=== PATIENT | female | born 1955 | race Caucasian/White ===

== ENCOUNTER → 2017-07-14 08:44 | Outpatient (CLI) | payer BC, SELFPAY ==
[2017-07-14 09:00] LABS: Basophils # 0.1 K/mm3 (0-0.2); Basophils % 1.1 % (0.1-2.0); Eosinophils # 0.2 K/mm3 (0.0-0.4); Eosinophils % 4.5 % (0.1-12.0); Hematocrit 45.6 % (37.0-47.0); Lymphocytes # 1.6 K/mm3 (0.7-4.5); Mean Corpuscular HGB Conc 32.9 g/dL (31.8-35.4); Mean Corpuscular Volume 94.3 fl (81-99); Mean Platelet Volume 7.1 fl (7.4-10.4); Monocytes # 0.3 K/mm3 (0.1-1.0); Monocytes % 6.5 % (1.7-9.3); Neutrophils # 2.2 K/mm3 (1.8-7.8); Neutrophils % 51.9 % (37.0-80.0); Platelet Count 322 K/mm3 (142-424); Red Blood Count 4.84 M/mm3 (4.20-5.40); Red Cell Distribution Width 12.8 % (11.5-17.5); White Blood Count 4.3 K/mm3 (4.8-10.8)
[2017-07-14 09:31] LABS: Alanine Aminotransferase 29 U/L (12-78); Albumin Level 3.8 gm/dL (3.4-5.0); Albumin/Globulin Ratio 0.9 (1.1-1.8); Alkaline Phosphatase 94 U/L (46-116); Anion Gap 12.3 mEq/L (5-15); Aspartate Amino Transferase 28 U/L (15-37); Bilirubin,Total 0.8 mg/dL (0.2-1.0); Blood Urea Nitrogen 10 mg/dL (7-18); Calcium 9.2 mg/dL (8.5-10.1); Carbon Dioxide 29 mmol/L (21.0-32.0); Chloride 106 mmol/L (98-107); Chol/HDL Ratio 3.7 (1-3.5); Cholesterol 181 mg/dL (140-200); Creatinine,Serum 0.86 mg/dL (0.55-1.02); Estimated Glomerular Filt Rate 67 ml/min (>60); GFR (African American) 81 ML/MIN (>60); Globulin 4.1 gm/dl (1.3-3.2); Glucose 102 mg/dL (74-106); HDL Cholesterol 49 mg/dL (29-89); LDL Cholesterol 118 mg/dL (0-130); Potassium 4.3 mmoL/L (3.5-5.1); Sodium 143 mmol/L (136-145); Thyroid Stimulating Hormone 0.91 uIU/ml (0.358-3.740); Total Protein,Serum 7.9 gm/dL (6.4-8.2); Triglycerides 72 mg/dL (30-200); VLDL Cholesterol 14 mg/dL (0-40)
== END ==
PROVIDERS: Visit Provider Internal Medicine Adolescent Medicine
DX: E78.5 Hyperlipidemia, unspecified (principal); E03.9 Hypothyroidism, unspecified; K74.5 Biliary cirrhosis, unspecified
CPT/HCPCS: 36415; 80053; 80061; 84443; 85025

== ENCOUNTER → 2017-07-20 15:17 | Outpatient (CLI) | payer BC, SELFPAY ==
--- NOTE | 2017-07-20 15:24 | XR_ITS ---
XR hand RT min 3V HISTORY: ITS.REASON: RT WRIST PAIN ORDERING PHYSICIAN: Mandeep Smalls MD PATIENT AGE: 61 years COMPARISON: FINDINGS: No fracture or dislocation. No lytic or blastic change. There is normal mineralization.. The joint spaces are well-preserved. No significant degenerative/arthritic changes. No erosive changes evident.. There are mild osteoarthritic changes of the second and third DIP. IMPRESSION: Mild osteoarthritis, otherwise right hand
--- NOTE | 2017-07-20 15:24 | XR_ITS ---
XR wrist RT min 3V HISTORY ITS.REASON: RT WRIST PAIN ORDERING PHYSICIAN: Mandeep Smalls MD PATIENT AGE: 61 years COMPARISON: None FINDINGS: No fracture or dislocation. No lytic or blastic change. There is normal mineralization.. The joint spaces are well-preserved. No significant degenerative/arthritic changes. No erosive changes evident.. There are some small cystic changes involving the ulnar aspect of the lunate proximally IMPRESSION: Subarticular cystic changes of the lunate otherwise negative right wrist
== END ==
PROVIDERS: PCP Internal Medicine Adolescent Medicine; Visit Provider Internal Medicine Adolescent Medicine
DX: M25.531 Pain in right wrist (principal); M79.641 Pain in right hand
CPT/HCPCS: 73110; 73130

== ENCOUNTER → 2018-01-19 10:26 | Outpatient (CLI) | payer BC, SELFPAY ==
[2018-01-19 11:24] LABS: Basophils # 0.1 K/mm3 (0-0.2); Basophils % 1.5 % (0.1-2.0); Eosinophils # 0.2 K/mm3 (0.0-0.4); Eosinophils % 4.2 % (0.1-12.0); Hemoglobin 15.9 g/dL (12.2-16.2); Lymphocytes # 1.8 K/mm3 (0.7-4.5); Lymphocytes % 40.8 K/mm3 (10-50); Mean Corpuscular HGB Conc 32.5 g/dL (31.8-35.4); Mean Corpuscular Hemoglobin 30.8 pg (27.0-31.2); Mean Corpuscular Volume 94.8 fl (81-99); Monocytes # 0.2 K/mm3 (0.1-1.0); Monocytes % 4.9 % (1.7-9.3); Neutrophils # 2.1 K/mm3 (1.8-7.8); Neutrophils % 48.6 % (37.0-80.0); Platelet Count 265 K/mm3 (142-424); Red Blood Count 5.16 M/mm3 (4.20-5.40); Red Cell Distribution Width 12.7 % (11.5-17.5); White Blood Count 4.4 K/mm3 (4.8-10.8)
[2018-01-19 13:04] LABS: Alanine Aminotransferase 26 U/L (12-78); Albumin Level 3.9 gm/dL (3.4-5.0); Albumin/Globulin Ratio 0.9 (1.1-1.8); Alkaline Phosphatase 104 U/L (46-116); Anion Gap 14.2 mEq/L (5-15); Aspartate Amino Transferase 27 U/L (15-37); Bilirubin,Total 0.7 mg/dL (0.2-1.0); Blood Urea Nitrogen 11 mg/dL (7-18); Calcium 9.2 mg/dL (8.5-10.1); Carbon Dioxide 27 mmol/L (21.0-32.0); Chloride 101 mmol/L (98-107); Chol/HDL Ratio 4.2 (1-3.5); Cholesterol 194 mg/dL (140-200); Creatinine,Serum 0.82 mg/dL (0.55-1.02); Estimated Glomerular Filt Rate 70 ml/min (>60); Free Thyroxine Index 5.6 ug/dL (5.93-13.13); GFR (African American) 85 ML/MIN (>60); Globulin 4.5 gm/dl (1.3-3.2); Glucose 81 mg/dL (74-106); HDL Cholesterol 46 mg/dL (29-89); LDL Cholesterol 126 mg/dL (0-130); Potassium 4.2 mmoL/L (3.5-5.1); Sodium 138 mmol/L (136-145); T4 (Thyroxine) 15.2 ug/dl (4.7-13.3); Thyroid Stimulating Hormone 0.08 uIU/ml (0.358-3.740); Total Protein,Serum 8.4 gm/dL (6.4-8.2); Triglycerides 109 mg/dL (30-200); Triiodothryronine (T3) Uptake 37 % (31-39); VLDL Cholesterol 22 mg/dL (0-40)
== END ==
PROVIDERS: Visit Provider Internal Medicine Adolescent Medicine
DX: E03.9 Hypothyroidism, unspecified (principal); E78.5 Hyperlipidemia, unspecified; K74.5 Biliary cirrhosis, unspecified
CPT/HCPCS: 36415; 80053; 80061; 84436; 84443; 84479; 85025

== ENCOUNTER → 2018-01-25 16:03 | Outpatient (CLI) | payer BC, SELFPAY ==
[2018-01-28 14:17] LABS: Albumin 3.8 g/dL (2.9-4.4); Alpha-1-Globulin 0.3 g/dL (0.0-0.4); Alpha-2-Globulin 0.8 g/dL (0.4-1.0); Gamma Globulin 1.8 g/dL (0.4-1.8)
[2018-01-29 16:20] LABS: Alpha-2-Globulin, U 12.3 % (.); Beta Globulin, U 23.8 % (.); M-Spike, % Not Observed % (Not Observed); Protein,Total,Urine 4.5 mg/dL (Not Estab.)
[2018-01-31 14:54] LABS: Free Lambda Lt Chains 26.3
[2018-01-31 15:01] LABS: Free Kappa Lt Chains 27.4
== END ==
PROVIDERS: Visit Provider Internal Medicine Adolescent Medicine
DX: R77.1 Abnormality of globulin (principal)
CPT/HCPCS: 36415; 83883; 84155; 84156; 84165; 84166

== ENCOUNTER → 2018-02-28 11:28 | Outpatient (CLI) | payer BC, SELFPAY ==
--- NOTE | 2018-02-28 11:41 | XR_ITS ---
XR bone survey CLINICAL INDICATION: High protein levels, bilateral multiple ITS.REASON: ABNORMAL LABS ORDERING PHYSICIAN: Jenniffer Velasquez MD PATIENT AGE: 62 years Comparison: None TECHNIQUE: AP and lateral skull, PA and lateral chest, AP and lateral cervical thoracic and lumbar spine, AP pelvis, AP view of upper and lower extremities bilateral feet and bilateral hands FINDINGS: PA and lateral views of the chest: Unremarkable cardiovascular structures with clear lungs. No bony destructive process evident. Calcified node in the right hilum. AP and lateral skull: Unremarkable. AP and lateral cervical spine: Degenerative disc disease C4-5-5 6 and 67. Carotid artery calcifications. No bony destructive process. AP and lateral thoracic and lumbar spine: Mild upper thoracic scoliosis convex left. Mild degenerative changes. No bony destructive process. 5 mm anterolisthesis of L4 on L5 AP pelvis: Mild osteoarthritis of the hips otherwise Unremarkable. AP extremities including hands and feet: no lytic or blastic changes. Mild osteoarthritic changes are present first metacarpal carpal joint on both sides IMPRESSION: Overall negative bone survey with no acute finding. No lytic or destructive process apparent Other nonacute findings as described above
== END ==
PROVIDERS: PCP Internal Medicine Adolescent Medicine; Visit Provider Internal Medicine Medical Oncology
DX: R79.9 Abnormal finding of blood chemistry, unspecified (principal)
CPT/HCPCS: 77075

== ENCOUNTER → 2018-05-21 09:38 | Outpatient (POV) | payer BC, SELFPAY | PROVIDERS: Visit Provider Dermatology | DX: Z00.00 Encounter for general adult medical examination without abnormal findings (principal) ==

== ENCOUNTER → 2018-07-17 11:16 | Outpatient (CLI) | payer BC, SELFPAY ==
[2018-07-17 11:40] LABS: Basophils # 0.1 K/mm3 (0-0.2); Basophils % 0.7 % (0.1-2.0); Eosinophils # 0.2 K/mm3 (0.0-0.4); Eosinophils % 2.3 % (0.1-12.0); Hematocrit 45.9 % (37.0-47.0); Hemoglobin 15.6 g/dL (12.2-16.2); Lymphocytes # 2.2 K/mm3 (0.7-4.5); Lymphocytes % 25.7 % (10-50); Mean Corpuscular Hemoglobin 30.9 pg (27.0-31.2); Mean Corpuscular Volume 90.9 fl (81-99); Mean Platelet Volume 6.8 fl (7.4-10.4); Monocytes # 0.4 K/mm3 (0.1-1.0); Monocytes % 4.3 % (1.7-9.3); Neutrophils # 5.8 K/mm3 (1.8-7.8); Neutrophils % 66.9 % (37.0-80.0); Platelet Count 419 K/mm3 (142-424); Red Blood Count 5.05 M/mm3 (4.20-5.40); Red Cell Distribution Width 12.6 % (11.5-17.5); White Blood Count 8.6 K/mm3 (4.8-10.8)
[2018-07-17 12:33] LABS: Alanine Aminotransferase 25 U/L (12-78); Albumin/Globulin Ratio 0.9 (1.1-1.8); Alkaline Phosphatase 90 U/L (46-116); Anion Gap 14.3 mEq/L (5-15); Aspartate Amino Transferase 20 U/L (15-37); Bilirubin,Total 0.6 mg/dL (0.2-1.0); Blood Urea Nitrogen 11 mg/dL (7-18); Calcium 9.1 mg/dL (8.5-10.1); Carbon Dioxide 29 mmol/L (21.0-32.0); Chloride 99 mmol/L (98-107); Chol/HDL Ratio 4.4 (1-3.5); Cholesterol 182 mg/dL (140-200); Creatinine,Serum 0.87 mg/dL (0.55-1.02); Estimated Glomerular Filt Rate 66 ml/min (>60); GFR (African American) 79 ML/MIN (>60); Globulin 4.5 gm/dl (1.3-3.2); Glucose 88 mg/dL (74-106); HDL Cholesterol 41 mg/dL (29-89); LDL Cholesterol 128 mg/dL (0-130); Potassium 4.3 mmoL/L (3.5-5.1); Sodium 138 mmol/L (136-145); Thyroid Stimulating Hormone 3.89 uIU/ml (0.358-3.740); Total Protein,Serum 8.5 gm/dL (6.4-8.2); Triglycerides 65 mg/dL (30-200); VLDL Cholesterol 13 mg/dL (0-40)
== END ==
PROVIDERS: Visit Provider Internal Medicine Adolescent Medicine
DX: K74.5 Biliary cirrhosis, unspecified (principal); E78.5 Hyperlipidemia, unspecified
CPT/HCPCS: 36415; 80053; 80061; 84443; 85025

== ENCOUNTER → 2018-08-23 14:36 | Outpatient (CLI) | payer BC, SELFPAY ==
[2018-08-23 15:18] LABS: Basophils # 0.1 K/mm3 (0-0.2); Basophils % 1.2 % (0.1-2.0); Eosinophils # 0.2 K/mm3 (0.0-0.4); Eosinophils % 2.9 % (0.1-12.0); Hematocrit 43.8 % (37.0-47.0); Hemoglobin 14.4 g/dL (12.2-16.2); Lymphocytes # 2.3 K/mm3 (0.7-4.5); Lymphocytes % 40.1 % (10-50); Mean Corpuscular HGB Conc 32.9 g/dL (31.8-35.4); Mean Corpuscular Hemoglobin 29.8 pg (27.0-31.2); Mean Corpuscular Volume 90.6 fl (81-99); Mean Platelet Volume 6.9 fl (7.4-10.4); Monocytes # 0.3 K/mm3 (0.1-1.0); Monocytes % 5.8 % (1.7-9.3); Neutrophils # 2.8 K/mm3 (1.8-7.8); Neutrophils % 50.1 % (37.0-80.0); Platelet Count 337 K/mm3 (142-424); Red Blood Count 4.83 M/mm3 (4.20-5.40); Red Cell Distribution Width 12.7 % (11.5-17.5); White Blood Count 5.6 K/mm3 (4.8-10.8)
[2018-08-23 17:39] LABS: Alanine Aminotransferase 30 U/L (12-78); Albumin Level 3.9 gm/dL (3.4-5.0); Alkaline Phosphatase 90 U/L (46-116); Anion Gap 13.2 mEq/L (5-15); Aspartate Amino Transferase 30 U/L (15-37); Bilirubin,Total 0.6 mg/dL (0.2-1.0); Blood Urea Nitrogen 8 mg/dL (7-18); Calcium 8.7 mg/dL (8.5-10.1); Carbon Dioxide 29 mmol/L (21.0-32.0); Chloride 102 mmol/L (98-107); Creatinine,Serum 0.87 mg/dL (0.55-1.02); Estimated Glomerular Filt Rate 65 ml/min (>60); GFR (African American) 79 ML/MIN (>60); Globulin 3.9 gm/dl (1.3-3.2); Glucose 80 mg/dL (74-106); Potassium 4.2 mmoL/L (3.5-5.1); Sodium 140 mmol/L (136-145); Total Protein,Serum 7.8 gm/dL (6.4-8.2)
[2018-08-26 11:14] LABS: Immunoglobulin A, Qn 328 mg/dL (87-352); Immunoglobulin G, Qn 1418 mg/dL (700-1600)
[2018-08-26 13:22] LABS: Albumin 3.8 g/dL (2.9-4.4); Alpha-1-Globulin 0.3 g/dL (0.0-0.4); Alpha-2-Globulin 0.7 g/dL (0.4-1.0); Gamma Globulin 1.8 g/dL (0.4-1.8); Protein, Total 7.7 g/dL (6.0-8.5)
[2018-08-26 14:12] LABS: Free Kappa Lt Chains 30.1 mg/L (3.3-19.4); Free Lambda Lt Chains 22.9 mg/L (5.7-26.3)
[2018-08-27 19:54] LABS: Immunoglobulin M, Qn 321 mg/dL (26-217)
== END ==
PROVIDERS: Visit Provider Internal Medicine Medical Oncology
DX: R79.9 Abnormal finding of blood chemistry, unspecified (principal)
CPT/HCPCS: 36415; 80053; 82784; 83883; 84155; 84165; 85025; 86334

== ENCOUNTER → 2019-02-11 09:49 | Outpatient (CLI) | payer BC, SELFPAY ==
[2019-02-11 10:14] LABS: Basophils # 0.1 K/mm3 (0-0.2); Basophils % 1.5 % (0.1-2.0); Eosinophils # 0.2 K/mm3 (0.0-0.4); Eosinophils % 3.4 % (0.1-12.0); Hematocrit 45.8 % (37.0-47.0); Hemoglobin 14.9 g/dL (12.2-16.2); Lymphocytes # 1.6 K/mm3 (0.7-4.5); Lymphocytes % 36.9 % (10-50); Mean Corpuscular HGB Conc 32.6 g/dL (31.8-35.4); Mean Corpuscular Hemoglobin 32.4 pg (27.0-31.2); Mean Corpuscular Volume 99.4 fl (81-99); Mean Platelet Volume 7.6 fl (7.4-10.4); Monocytes # 0.3 K/mm3 (0.1-1.0); Monocytes % 6.4 % (1.7-9.3); Neutrophils # 2.3 K/mm3 (1.8-7.8); Neutrophils % 51.7 % (37.0-80.0); Platelet Count 331 K/mm3 (142-424); Red Blood Count 4.61 M/mm3 (4.20-5.40); Red Cell Distribution Width 12.7 % (11.5-17.5); White Blood Count 4.4 K/mm3 (4.8-10.8)
[2019-02-11 11:58] LABS: Alanine Aminotransferase 23 U/L (12-78); Albumin Level 3.7 gm/dL (3.4-5.0); Albumin/Globulin Ratio 0.9 (1.1-1.8); Alkaline Phosphatase 81 U/L (46-116); Anion Gap 12.1 mEq/L (5-15); Aspartate Amino Transferase 28 U/L (15-37); Bilirubin,Total 0.8 mg/dL (0.2-1.0); Blood Urea Nitrogen 10 mg/dL (7-18); Calcium 8.7 mg/dL (8.5-10.1); Carbon Dioxide 26 mmol/L (21.0-32.0); Chloride 103 mmol/L (98-107); Chol/HDL Ratio 4.2 (1-3.5); Cholesterol 186 mg/dL (140-200); Creatinine,Serum 0.83 mg/dL (0.55-1.02); Estimated Glomerular Filt Rate 69 ml/min (>60); GFR (African American) 83 ML/MIN (>60); Glucose 91 mg/dL (74-106); HDL Cholesterol 44 mg/dL (29-89); LDL Cholesterol 124 mg/dL (0-130); Potassium 4.1 mmoL/L (3.5-5.1); Sodium 137 mmol/L (136-145); Thyroid Stimulating Hormone 1.88 uIU/ml (0.358-3.740); Total Protein,Serum 7.7 gm/dL (6.4-8.2); Triglycerides 88 mg/dL (30-200); VLDL Cholesterol 18 mg/dL (0-40)
== END ==
PROVIDERS: Visit Provider Internal Medicine Adolescent Medicine
DX: K74.5 Biliary cirrhosis, unspecified (principal); E78.5 Hyperlipidemia, unspecified; E03.9 Hypothyroidism, unspecified
CPT/HCPCS: 36415; 80053; 80061; 84443; 85025

== ENCOUNTER → 2019-05-23 12:18 | Outpatient (CLI) | payer BC, SELFPAY ==
[2019-05-23 13:01] LABS: Basophils # 0.1 K/mm3 (0-0.2); Basophils % 1.4 % (0.1-2.0); Eosinophils # 0.2 K/mm3 (0.0-0.4); Eosinophils % 3.1 % (0.1-12.0); Hematocrit 45.7 % (37.0-47.0); Hemoglobin 15.4 g/dL (12.2-16.2); Lymphocytes # 2.1 K/mm3 (0.7-4.5); Lymphocytes % 41.4 % (10-50); Mean Corpuscular HGB Conc 33.8 g/dL (31.8-35.4); Mean Corpuscular Hemoglobin 31.6 pg (27.0-31.2); Mean Corpuscular Volume 93.6 fl (81-99); Mean Platelet Volume 7.3 fl (7.4-10.4); Monocytes # 0.3 K/mm3 (0.1-1.0); Monocytes % 5.3 % (1.7-9.3); Neutrophils # 2.5 K/mm3 (1.8-7.8); Neutrophils % 48.8 % (37.0-80.0); Platelet Count 314 K/mm3 (142-424); Red Blood Count 4.88 M/mm3 (4.20-5.40); Red Cell Distribution Width 12.6 % (11.5-17.5); White Blood Count 5.1 K/mm3 (4.8-10.8)
[2019-05-23 15:12] LABS: Alanine Aminotransferase 22 U/L (12-78); Albumin Level 4.4 g/dl (3.5-5.0); Albumin/Globulin Ratio 1.2 (1.1-1.8); Alkaline Phosphatase 85 U/L (38-126); Anion Gap 10.9 mEq/L (5-15); Aspartate Amino Transferase 36 U/L (14-36); Bilirubin,Total 0.6 mg/dl (0.2-1.3); Blood Urea Nitrogen 10 mg/dl (7-17); Calcium 9.7 mg/dl (8.4-10.2); Carbon Dioxide 29 mmol/L (22.0-30.0); Chloride 101 mmol/L (98-107); Estimated Glomerular Filt Rate 84 ml/min (>60); GFR (African American) 102 ML/MIN (>60); Globulin 3.6 g/dL (1.3-3.2); Glucose 82 mg/dl (74-100); Potassium 4.9 mmoL/L (3.5-5.1); Sodium 136 mmol/L (136-145)
[2019-05-24 22:50] LABS: Free Kappa Lt Chains 27.8 mg/L (3.3-19.4); Free Lambda Lt Chains 24.5 mg/L (5.7-26.3)
[2019-05-26 14:50] LABS: Immunoglobulin A, Qn 351 mg/dL (87-352)
[2019-05-26 16:33] LABS: Albumin 3.8 g/dL (2.9-4.4); Alpha-1-Globulin 0.3 g/dL (0.0-0.4); Alpha-2-Globulin 0.7 g/dL (0.4-1.0); Gamma Globulin 1.8 g/dL (0.4-1.8); Protein, Total 7.8 g/dL (6.0-8.5)
[2019-05-27 14:58] LABS: Immunoglobulin G, Qn 1599 mg/dL (700-1600); Immunoglobulin M, Qn 350 mg/dL (26-217)
== END ==
PROVIDERS: Visit Provider Internal Medicine Medical Oncology
DX: D64.9 Anemia, unspecified (principal)
CPT/HCPCS: 36415; 80053; 82784; 83883; 84155; 84165; 85025; 86334

== ENCOUNTER → 2019-08-01 09:44 | Outpatient (CLI) | payer BC, SELFPAY ==
[2019-08-01 10:06] LABS: Basophils % 0.8 % (0.1-2.0); Eosinophils # 0.2 K/mm3 (0.0-0.4); Eosinophils % 3.7 % (0.1-12.0); Hematocrit 44.8 % (37.0-47.0); Hemoglobin 14.2 g/dL (12.2-16.2); Lymphocytes # 1.8 K/mm3 (0.7-4.5); Lymphocytes % 39.9 % (10-50); Mean Corpuscular HGB Conc 31.7 g/dL (31.8-35.4); Mean Corpuscular Volume 94.5 fl (81-99); Mean Platelet Volume 7.4 fl (7.4-10.4); Monocytes # 0.3 K/mm3 (0.1-1.0); Monocytes % 7.7 % (1.7-9.3); Neutrophils # 2.1 K/mm3 (1.8-7.8); Neutrophils % 47.9 % (37.0-80.0); Platelet Count 328 K/mm3 (142-424); Red Blood Count 4.74 M/mm3 (4.20-5.40); White Blood Count 4.4 K/mm3 (4.8-10.8)
[2019-08-01 10:14] LABS: INR 1.02 (0.9-1.1); Prothrombin Time 10.6 seconds (9.4-11.8)
[2019-08-01 11:11] LABS: Chloride 100 mmol/L (98-107); Potassium 4.7 mmoL/L (3.5-5.1); Sodium 136 mmol/L (136-145)
[2019-08-01 11:13] LABS: Alanine Aminotransferase 18 U/L (12-78); Alkaline Phosphatase 86 U/L (38-126); Aspartate Amino Transferase 33 U/L (14-36); Bilirubin,Total 0.7 mg/dl (0.2-1.3); Blood Urea Nitrogen 13 mg/dl (7-17); Estimated Glomerular Filt Rate 72 ml/min (>60); GFR (African American) 87 ML/MIN (>60)
[2019-08-01 11:14] LABS: Albumin/Globulin Ratio 1.1 (1.1-1.8); Anion Gap 10.7 mEq/L (5-15); Calcium 9.4 mg/dl (8.4-10.2); Carbon Dioxide 30 mmol/L (22.0-30.0); Chol/HDL Ratio 3.5 (1-3.5); Cholesterol 170 mg/dl (140-200); Globulin 3.6 g/dL (1.3-3.2); Glucose 96 mg/dl (74-100); HDL Cholesterol 48 mg/dl (40-60); Total Protein,Serum 7.6 g/dl (6.3-8.2); Triglycerides 94 mg/dl (30-150); VLDL Cholesterol 19 mg/dL (0-40)
[2019-08-01 11:25] LABS: Direct LDL Cholesterol 125.59 mg/dL (100-129)
[2019-08-01 11:31] LABS: Free Thyroxine Index 3.4 ug/dL (5.93-13.13); T4 (Thyroxine) 11.3 ug/dl (5.53-11.0); Triiodothryronine (T3) Uptake 30 % (23.5-40.5)
[2019-08-01 11:45] LABS: Thyroid Stimulating Hormone 5.54 uIU/mL (0.465-4.68)
== END ==
PROVIDERS: Visit Provider Internal Medicine Adolescent Medicine
DX: E03.9 Hypothyroidism, unspecified (principal); E78.5 Hyperlipidemia, unspecified; K74.5 Biliary cirrhosis, unspecified
CPT/HCPCS: 36415; 80053; 80061; 84436; 84443; 84479; 85025; 85610

== ENCOUNTER → 2020-07-16 09:36 | Outpatient (CLI) | payer MEDICARE, BC, SELFPAY ==
[2020-07-16 10:42] LABS: Chloride 103 mmol/L (98-107); Potassium 4.5 mmoL/L (3.5-5.1); Sodium 138 mmol/L (136-145)
[2020-07-16 10:44] LABS: Blood Urea Nitrogen 11 mg/dl (7-17); Estimated Glomerular Filt Rate 72 ml/min (>60); GFR (African American) 87 ML/MIN (>60)
[2020-07-16 10:45] LABS: Alanine Aminotransferase 19 U/L (12-78); Albumin Level 4.5 g/dl (3.5-5.0); Albumin/Globulin Ratio 1.3 (1.1-1.8); Alkaline Phosphatase 95 U/L (38-126); Anion Gap 13.5 mEq/L (5-15); Aspartate Amino Transferase 36 U/L (14-36); Bilirubin,Total 0.9 mg/dl (0.2-1.3); Calcium 9.6 mg/dl (8.4-10.2); Carbon Dioxide 26 mmol/L (22.0-30.0); Cholesterol 210 mg/dl (140-200); Globulin 3.5 g/dL (1.3-3.2); Glucose 102 mg/dl (74-100); Triglycerides 146 mg/dl (30-150); VLDL Cholesterol 29 mg/dL (0-40)
[2020-07-16 10:46] LABS: Chol/HDL Ratio 4.5 (1-3.5); HDL Cholesterol 47 mg/dl (40-60)
[2020-07-16 10:56] LABS: Direct LDL Cholesterol 125.26 mg/dL (100-129)
[2020-07-16 12:35] LABS: Basophils # 0.1 K/mm3 (0-0.2); Basophils % 1.6 % (0.1-2.0); Eosinophils # 0.2 K/mm3 (0.0-0.4); Eosinophils % 3.2 % (0.1-12.0); Hematocrit 47.5 % (37.0-47.0); Lymphocytes # 1.7 K/mm3 (0.7-4.5); Lymphocytes % 34.7 % (10-50); Mean Corpuscular HGB Conc 33.6 g/dL (31.8-35.4); Mean Corpuscular Hemoglobin 31.5 pg (27.0-31.2); Mean Corpuscular Volume 93.7 fl (81-99); Mean Platelet Volume 8.1 fl (7.4-10.4); Monocytes # 0.3 K/mm3 (0.1-1.0); Monocytes % 6.4 % (1.7-9.3); Neutrophils # 2.7 K/mm3 (1.8-7.8); Platelet Count 300 K/mm3 (142-424); Red Blood Count 5.07 M/mm3 (4.20-5.40); Red Cell Distribution Width 12.9 % (11.5-17.5)
[2020-07-22 12:43] LABS: Thyroid Stimulating Immunoglob <0.10 IU/L (0.00-0.55)
== END ==
PROVIDERS: Visit Provider Internal Medicine Adolescent Medicine
DX: E03.9 Hypothyroidism, unspecified (principal); E78.5 Hyperlipidemia, unspecified; K74.5 Biliary cirrhosis, unspecified
CPT/HCPCS: 36415; 80053; 80061; 84445; 85025

== ENCOUNTER → 2020-07-22 09:58 | Outpatient (CLI) | payer MEDICARE, BC, SELFPAY ==
[2020-07-22 11:21] LABS: Free T4 (Free Thyroxine) 1.85 ng/dl (0.78-2.19)
[2020-07-22 11:35] LABS: Thyroid Stimulating Hormone 2.69 uIU/mL (0.465-4.68)
== END ==
PROVIDERS: Visit Provider Nurse Practitioner Family
DX: E03.9 Hypothyroidism, unspecified (principal)
CPT/HCPCS: 36415; 84439; 84443

== ENCOUNTER → 2021-01-14 17:14 | Outpatient (CLI) | payer MEDICARE, BC, SELFPAY ==
[2021-01-14 18:51] LABS: Alanine Aminotransferase 18 U/L (12-78); Albumin/Globulin Ratio 1.1 (1.1-1.8); Alkaline Phosphatase 95 U/L (38-126); Anion Gap 15.4 mEq/L (5-15); Aspartate Amino Transferase 41 U/L (14-36); Bilirubin,Total 0.9 mg/dl (0.2-1.3); Blood Urea Nitrogen 11 mg/dl (7-17); Calcium 9.4 mg/dl (8.4-10.2); Carbon Dioxide 28 mmol/L (22.0-30.0); Chloride 100 mmol/L (98-107); Cholesterol 198 mg/dl (140-200); Estimated Glomerular Filt Rate 83 ml/min (>60); GFR (African American) 101 ML/MIN (>60); Globulin 3.5 g/dL (1.3-3.2); Glucose 84 mg/dl (74-100); HDL Cholesterol 49 mg/dl (40-60); Potassium 4.4 mmoL/L (3.5-5.1); Sodium 139 mmol/L (136-145); Total Protein,Serum 7.5 g/dl (6.3-8.2); Triglycerides 72 mg/dl (30-150); VLDL Cholesterol 14 mg/dL (0-40)
[2021-01-14 19:02] LABS: Direct LDL Cholesterol 123.48 mg/dL (100-129)
[2021-01-14 19:21] LABS: Thyroid Stimulating Hormone 1.46 uIU/mL (0.465-4.68)
== END ==
PROVIDERS: Visit Provider Internal Medicine Adolescent Medicine
DX: E03.9 Hypothyroidism, unspecified (principal); E78.5 Hyperlipidemia, unspecified
CPT/HCPCS: 36415; 80053; 80061; 84443

== ENCOUNTER → 2021-07-09 09:47 | Outpatient (CLI) | payer MEDICARE, BC, SELFPAY ==
[2021-07-09 10:26] LABS: Basophils # 0.2 K/mm3 (0-0.2); Basophils % 3.8 % (0.1-2.0); Eosinophils # 0.1 K/mm3 (0.0-0.4); Eosinophils % 3.6 % (0.1-12.0); Hemoglobin 14.7 g/dL (12.2-16.2); Lymphocytes # 1.5 K/mm3 (0.7-4.5); Mean Corpuscular HGB Conc 33.3 g/dL (31.8-35.4); Mean Corpuscular Hemoglobin 31.7 pg (27.0-31.2); Mean Corpuscular Volume 95.2 fl (81-99); Mean Platelet Volume 7.8 fl (7.4-10.4); Monocytes # 0.3 K/mm3 (0.1-1.0); Monocytes % 6.4 % (1.7-9.3); Neutrophils % 49.2 % (37.0-80.0); Platelet Count 314 K/mm3 (142-424); Red Blood Count 4.63 M/mm3 (4.20-5.40); Red Cell Distribution Width 13.1 % (11.5-17.5)
[2021-07-09 10:50] LABS: Chloride 104 mmol/L (98-107); Potassium 4.5 mmoL/L (3.5-5.1); Sodium 138 mmol/L (136-145)
[2021-07-09 10:53] LABS: Alanine Aminotransferase 19 U/L (12-78); Albumin Level 3.9 g/dl (3.5-5.0); Albumin/Globulin Ratio 1.2 (1.1-1.8); Alkaline Phosphatase 86 U/L (38-126); Anion Gap 9.5 mEq/L (5-15); Aspartate Amino Transferase 36 U/L (14-36); Bilirubin,Total 0.7 mg/dl (0.2-1.3); Blood Urea Nitrogen 12 mg/dl (7-17); Carbon Dioxide 29 mmol/L (22.0-30.0); Cholesterol 196 mg/dl (140-200); Estimated Glomerular Filt Rate 62 ml/min (>60); GFR (African American) 76 ML/MIN (>60); Globulin 3.3 g/dL (1.3-3.2); Total Protein,Serum 7.2 g/dl (6.3-8.2); Triglycerides 95 mg/dl (30-150); VLDL Cholesterol 19 mg/dL (0-40)
[2021-07-09 10:54] LABS: Calcium 8.6 mg/dl (8.4-10.2); Glucose 91 mg/dl (74-100)
[2021-07-09 11:05] LABS: Direct LDL Cholesterol 114.39 mg/dL (100-129)
[2021-07-09 11:11] LABS: Triiodothryronine (T3) Uptake 29 % (23.5-40.5)
[2021-07-09 11:12] LABS: Free Thyroxine Index 3.9 ug/dL (5.93-13.13); T4 (Thyroxine) 13.3 ug/dl (5.53-11.0)
[2021-07-09 11:25] LABS: Thyroid Stimulating Hormone 1.45 uIU/mL (0.465-4.68)
[2021-07-09 16:17] LABS: Chol/HDL Ratio 3.8 (1-3.5); HDL Cholesterol 51 mg/dl (40-60)
== END ==
PROVIDERS: PCP Internal Medicine Adolescent Medicine; Visit Provider Internal Medicine Adolescent Medicine
DX: E03.9 Hypothyroidism, unspecified (principal); K74.5 Biliary cirrhosis, unspecified; E78.5 Hyperlipidemia, unspecified
CPT/HCPCS: 36415; 80053; 80061; 84436; 84443; 84479; 85025

== ENCOUNTER → 2021-07-18 16:29 | Outpatient (CLI) | payer MEDICARE, BC, SELFPAY ==
--- NOTE | 2021-07-18 17:03 | XR_ITS ---
PROCEDURE INFORMATION: Exam: XR Right Hand Exam date and time: 07/18/2021 5:06 PM Age: 65 years old Clinical indication: Pain; Hand; Right; Additional info: Arthritis TECHNIQUE: Imaging protocol: XR Right hand. Views: 3 or more views. Total images: 3 COMPARISON: CR [id number] XR hand RT min 3V 07/20/2017 3:26 PM FINDINGS: Bones/joints: Osteopenia. No fractures. Slight 1 mm positive ulnar variance again noted with chronic appearing subcortical sclerosis and cystic changes in the medial proximal lunate which are unchanged from 2018, suggesting chronic changes of ulnolunate abutment. No blastic or lytic lesions. Moderate interphalangeal osteoarthritic changes in the 2nd and 3rd finger DIP joints, with mild interphalangeal osteoarthritic changes in the 4th and 5th finger DIP joints and in the 2nd through 5th finger PIP joints. Minor osteoarthritic spurring in the 1st CMC joint. Minor joint space narrowing with slight lateral marginal spurring and a few chronic appearing marginal erosions in the 2nd and 3rd MCP joints unchanged in appearance, nonspecific. Early/mild changes of CPPD or hemochromatosis could produce this pattern. No chondrocalcinosis is evident however. Soft tissues: No periostitis or osteolysis. No gross soft tissue abnormalities. No radiopaque foreign bodies. Other findings: Carpal relationships are normal. IMPRESSION: 1. No acute findings. 2. Osteopenia and osteoarthritic changes detailed above. 3. Changes in the 2nd and 3rd MCP joints which might reflect very early/mild changes of CPPD or hemochromatosis, correlate clinically. No chondrocalcinosis is evident. 4. Slight positive ulnar variance and findings suspicious for chronic ulnolunate abutment.
--- NOTE | 2021-07-18 17:03 | XR_ITS ---
PROCEDURE INFORMATION: Exam: XR Left Hand Exam date and time: 07/18/2021 5:06 PM Age: 65 years old Clinical indication: Pain; Hand; Left; Additional info: Arthritis TECHNIQUE: Imaging protocol: XR Left hand. Views: 3 or more views. Total images: 3 COMPARISON: No relevant prior studies available. FINDINGS: Bones/joints: Osteopenia. No fractures. Approximately 1 mm positive ulnar variance. Minor to get her contour irregularity in the proximal medial lunate may indicate mild changes of chronic ulnolunate abutment. No blastic or lytic lesions. Moderate osteoarthritic joint space narrowing with mild marginal spurring in the STT joint and 1st CMC joint. Moderate interphalangeal osteoarthritic changes in the 3rd finger DIP joint and to a lesser degree the DIP joints of the 2nd, 4th, and 5th fingers. Mild interphalangeal osteoarthritic changes in the 2nd through 5th fingers. Soft tissues: No periostitis or osteolysis. Moderate soft tissue swelling in the 2nd finger and to a lesser degree the proximal 3rd and 4th fingers. No radiopaque foreign bodies. Other findings: Carpal relationships are normal. IMPRESSION: 1. No acute findings. 2. Osteopenia and osteoarthritic changes detailed above. 3. Slight 1 mm positive ulnar variance with minimal changes in the medial proximal lunate suspicious for mild changes of chronic abutment.
[2021-07-18 18:08] LABS: C-Reactive Protein 1.2 mg/L (0-4)
[2021-07-18 19:13] LABS: Erythrocyte Sedimentation Rate 26 mm/hr (0-30)
[2021-07-20 08:18] LABS: RA Latex Turbid. <10.0 IU/mL (<14.0)
[2021-07-20 12:13] LABS: Anti-Centromere B Antibodies <0.2 AI (0.0-0.9); Anti-DNA (DS) Ab Qn <1 IU/mL (0-9); Anti-Jo-1 <0.2 AI (0.0-0.9); Anti-Smith Antibody <0.2 AI (0.0-0.9); Antichromatin Antibodies 0.2 AI (0.0-0.9); Antiscleroderma-70 Antibodies <0.2 AI (0.0-0.9); RNP Antibodies 1.6 AI (0.0-0.9); Sjogren's Anti-SS-A 0.5 AI (0.0-0.9); Sjogren's Anti-SS-B <0.2 AI (0.0-0.9)
[2021-07-21 00:08] LABS: Anti-Cyclic Citrullinated Pept 3 units (0-19)
== END ==
PROVIDERS: PCP Internal Medicine Adolescent Medicine; Visit Provider Internal Medicine Adolescent Medicine
DX: M19.042 Primary osteoarthritis, left hand (principal); M19.041 Primary osteoarthritis, right hand
CPT/HCPCS: 36415; 73130; 85651; 86140; 86200; 86225; 86235; 86431

== ENCOUNTER 2021-11-04 06:14 | Emergency (ER) | payer MEDICARE, BC, SELFPAY ==
[2021-11-04 06:16] VITALS: BP 209/98; PULSE 75; RESP 18; TEMP 36.5; O2SAT 99; BMI 21.9
[2021-11-04 06:21] VITALS: BMI 21.9
--- NOTE | 2021-11-04 06:22 | XR_ITS ---
FINAL REPORT CLINICAL HISTORY: fall FINDINGS: Three views of the right shoulder were obtained. There is a comminuted and mildly impacted fracture of the surgical neck of the humerus. Fracture lines involve the greater tuberosity. There is mild inferior subluxation of the humerus. There is mild AC joint degenerative change with mild inferior spurring of the acromion. IMPRESSION: Comminuted, mildly impacted surgical neck fracture. Reviewed, Interpreted and Dictated by Brad Christopher III, MD Transcribed by Scott Maharaj Authenticated and [facility]
--- NOTE | 2021-11-04 06:31 | XR_ITS ---
FINAL REPORT CLINICAL HISTORY: fall FINDINGS: 2 views of the right humerus were obtained. There is a comminuted and mildly impacted fracture of the surgical neck of the humerus. Fracture lines involve the greater tuberosity. There is mild inferior subluxation of the humerus. There is mild AC joint degenerative change with mild inferior spurring of the acromion. IMPRESSION: Comminuted, mildly impacted surgical neck fracture. Reviewed, Interpreted and Dictated by Brad Christopher III, MD Transcribed by Scott Maharaj Authenticated and [facility]
--- NOTE | 2021-11-04 06:47 | HMH.EDGENADL ---
ED Disposition Clinical Impression: Humerus surgical neck fracture Qualifiers: Encounter type: initial encounter Fracture type: closed Fracture morphology: 2-part Fracture alignment: nondisplaced Laterality: right Qualified Code(s): S42.224A - 2-part nondisplaced fracture of surgical neck of right humerus, initial encounter for closed fracture Disposition: Home, Self-Care Condition on Discharge: Good Instructions: DI for Shoulder Fracture Additional Instructions: You have been evaluated for fall, proximal humerus fracture. Please follow-up with orthopedics, Dr. Vaughn in clinic next week. Keep sling in place. Tylenol Motrin for pain. Rolfe for severe pain. Return to the emergency department at once for any new or worsening symptoms, pain, numbness, weakness, tingling or any other concerns. Prescriptions: Hydrocod/Acet 5/325 mg [Rolfe 5/325mg tablet] 1 tab PO Q6HP PRN #12 tab PRN Reason: Severe Pain Transmission Status: Received by [facility][id number] ondansetron HCL [Ondansetron 4mg tab*] 4 mg PO Q6 PRN #6 tab PRN Reason: Nausea Transmission Status: Received by [id number] Referrals: Mandeep Smalls MD [Primary Care Provider] - Jl Vaughn MD [Staff Physician] - Time of Disposition: 07:04 - Critical Care Critical Care Time: No Attestation: On , the high probability of a clinically significant, sudden or life threatening deterioration of the following system(s) required my full and direct attention, intervention and personal management. The time I documented below is in addition to time spent performing reported procedures but includes the following listed in this critical care notation. Medical Decision Making - Medical Records Medical records reviewed: Yes: I reviewed the patient's medical records. - Demarcus Inquiry Pt receiving controlled substance: No Vital Signs: 11/04/21 06:16 11/04/21 07:01 Temperature 97.7 F Temperature Source Oral Pulse Rate 66 Pulse Rate [Right] 75 Respiratory Rate 18 18 Blood Pressure 155/81 H Blood Pressure [Right Arm] 209/98 H Blood Pressure Mean 121 Blood Pressure Mean [Right Arm] 135 02 Sat by Pulse Oximetry 99 99 Medical Decision Narrative: In summary this is a 66-year-old [id number]-swjzsffs female presenting to the emergency department with right shoulder pain after a fall. Patient clinically stable on arrival. Vital signs within normal limits. Will obtain x-rays of the right shoulder and humerus. Reviewed patient's x-rays. It is concerning for a fracture at the surgical neck. Patient counseled on pain control. Recommended urgent follow-up with orthopedics. Keep sling in place. Given return precautions. Stable for discharge. General Adult HPI - General Chief complaint: Extremity Injury, Upper Stated complaint: AO 11/04/21 0430 Injury Right Shoulder Time Seen by Provider: 11/04/21 06:27 Mode of Arrival: Ambulatory Limitations: No Limitations Description of Symptoms (Recalled from ER Triage Doc. by RN): pt states was watering alexander and fell over concrete block and landed on rt shoulder. pt c/o rt shoulder pain - History of Present Illness HPI narrative: 66-year-old female presenting to the emergency department with right shoulder pain after a fall. Incident happened just prior to arrival. She was watering her alexander, tripped over bricks in her yard and fell. She does not know if she landed directly on her shoulder if she tried to catch her self with her hands. She has pain located in the right shoulder, upper arm. Has pain with motion, arm abduction. Pain is a constant ache, sharp and intense pain with motion. No pain at the elbow, forearm, wrist, hand. She is able to move all of the fingers. No numbness, weakness, tingling. No other injuries in the fall. Specifically, no head injury, loss of consciousness, neck pain. Took ibuprofen prior to arrival. No other medications - Related Data Home Medications [facility]
[2021-11-04 07:01] VITALS: BP 155/81; PULSE 66; RESP 18; O2SAT 99
--- NOTE | 2021-11-04 07:29 | PC.NURSE ---
pt declined motrin tylenol. states she has some with her.
--- NOTE | 2021-11-04 07:34 | PC.NURSE ---
ORTHOPEDICS PAGED AT THIS TIME
--- NOTE | 2021-11-04 07:35 | PC.WOUNDNOTE ---
pt given ice pack
--- NOTE | 2021-11-04 07:36 | PC.NURSE ---
LAURENT RDZ SPEAKING WITH DR. VALLE
[2021-11-04 08:00] VITALS: BP 160/82; PULSE 75; RESP 18; TEMP 36.7; O2SAT 99
== END 2021-11-04 08:05 | disposition home or self-care (01) ==
PROVIDERS: Emergency Provider Emergency Medicine; PCP Internal Medicine Adolescent Medicine
DX: S42.224A 2-part nondisplaced fracture of surgical neck of right humerus, initial encounter for closed fracture (principal); W18.09XA Striking against other object with subsequent fall, initial encounter; Y93.H2 Activity, gardening and landscaping; Z87.442 Personal history of urinary calculi; Z87.440 Personal history of urinary (tract) infections
CPT/HCPCS: 73030; 73060; 99283

== ENCOUNTER → 2021-11-16 11:55 | Outpatient (CLI) | payer MEDICARE, BC, SELFPAY ==
--- NOTE | 2021-11-16 11:59 | XR_ITS ---
FINAL REPORT CLINICAL HISTORY: shoulder injury COMPARISON: 11/04/2021 FINDINGS: Right shoulder Three views were obtained. Again identified is a comminuted nondisplaced fracture of the surgical neck of the humerus and greater tuberosity. There is no change in the alignment. Mild degenerative changes are present. IMPRESSION: Fracture as above. Reviewed, Interpreted and Dictated by Brad Christopher III, MD Transcribed by Meghna Newman Authenticated and [facility]
== END ==
PROVIDERS: PCP Internal Medicine Adolescent Medicine; Visit Provider Orthopaedic Surgery
DX: S42.211A Unspecified displaced fracture of surgical neck of right humerus, initial encounter for closed fracture (principal)
CPT/HCPCS: 73030

== ENCOUNTER → 2021-11-30 09:45 | Outpatient (CLI) | payer MEDICARE, BC, SELFPAY ==
--- NOTE | 2021-11-30 09:52 | XR_ITS ---
FINAL REPORT CLINICAL HISTORY: humerus fracture COMPARISON: November 16, 2021 FINDINGS: RIGHT SHOULDER 3 views of the right shoulder were obtained. There is a comminuted, impacted fracture of the humeral head and neck. Bony alignment is stable. The joint spaces are intact. There is no soft tissue abnormality. IMPRESSION: No significant change. Reviewed, Interpreted and Dictated by Brad Christopher III, MD Transcribed by Kierra Marc Authenticated and [facility]
== END ==
PROVIDERS: PCP Internal Medicine Adolescent Medicine; Visit Provider Orthopaedic Surgery
DX: S42.211A Unspecified displaced fracture of surgical neck of right humerus, initial encounter for closed fracture (principal)
CPT/HCPCS: 73030

== ENCOUNTER → 2021-12-28 09:04 | Outpatient (CLI) | payer MEDICARE, BC, SELFPAY ==
--- NOTE | 2021-12-28 09:07 | XR_ITS ---
FINAL REPORT CLINICAL HISTORY: right shoulder injury COMPARISON: 11/30/2021 FINDINGS: RIGHT SHOULDER 3 views demonstrate an impacted, comminuted fracture of the proximal humerus. The fracture line involves the greater tuberosity and humeral neck. There is no significant callus formation. The bony alignment is stable. There are mild degenerative changes. The visualized bony structures are well aligned. No soft tissue abnormality is seen. IMPRESSION: Fracture of the proximal humerus with no significant callus formation. Overall stable exam. Reviewed, Interpreted and Dictated by Brad Christopher III, MD Transcribed by Kierra aMrc Authenticated and [facility]
== END ==
PROVIDERS: PCP Internal Medicine Adolescent Medicine; Visit Provider Physician Assistant Surgical
DX: S42.211A Unspecified displaced fracture of surgical neck of right humerus, initial encounter for closed fracture (principal)
CPT/HCPCS: 73030

== ENCOUNTER → 2022-01-20 10:35 | Outpatient (CLI) | payer MEDICARE, BC, SELFPAY ==
[2022-01-20 11:41] LABS: Hematocrit 46.9 % (37.0-47.0); Hemoglobin 14.9 g/dL (12.2-16.2); Mean Corpuscular Hemoglobin 31.4 pg (27.0-31.2); Mean Corpuscular Volume 99.2 fl (81-99); Red Blood Count 4.73 M/mm3 (4.20-5.40)
[2022-01-20 11:42] LABS: Basophils # 0.1 K/mm3 (0-0.2); Basophils % 2.5 % (0.1-2.0); Eosinophils # 0.1 K/mm3 (0.0-0.4); Eosinophils % 2.8 % (0.1-12.0); Lymphocytes # 1.5 K/mm3 (0.7-4.5); Lymphocytes % 38.3 % (10-50); Mean Corpuscular HGB Conc 31.7 g/dL (31.8-35.4); Mean Platelet Volume 7.9 fl (7.4-10.4); Monocytes # 0.3 K/mm3 (0.1-1.0); Monocytes % 6.6 % (1.7-9.3); Neutrophils % 49.8 % (37.0-80.0); Platelet Count 314 K/mm3 (142-424); Red Cell Distribution Width 12.8 % (11.5-17.5)
[2022-01-20 12:00] LABS: Alanine Aminotransferase 18 U/L (12-78); Albumin Level 4.3 g/dl (3.5-5.0); Albumin/Globulin Ratio 1.3 (1.1-1.8); Alkaline Phosphatase 111 U/L (38-126); Anion Gap 15.6 mEq/L (5-15); Aspartate Amino Transferase 38 U/L (14-36); Bilirubin,Total 0.7 mg/dl (0.2-1.3); Blood Urea Nitrogen 13 mg/dl (7-17); Calcium 9.7 mg/dl (8.4-10.2); Carbon Dioxide 31 mmol/L (22.0-30.0); Chloride 99 mmol/L (98-107); Chol/HDL Ratio 4.5 (1-3.5); Cholesterol 219 mg/dl (140-200); Estimated Glomerular Filt Rate 71 ml/min (>60); GFR (African American) 86 ML/MIN (>60); Globulin 3.3 g/dL (1.3-3.2); Glucose 92 mg/dl (74-100); HDL Cholesterol 49 mg/dl (40-60); Potassium 4.6 mmoL/L (3.5-5.1); Sodium 141 mmol/L (136-145); Total Protein,Serum 7.6 g/dl (6.3-8.2); Triglycerides 115 mg/dl (30-150); VLDL Cholesterol 23 mg/dL (0-40)
[2022-01-20 12:11] LABS: Direct LDL Cholesterol 135.94 mg/dL (100-129)
== END ==
PROVIDERS: PCP Internal Medicine Adolescent Medicine; Visit Provider Internal Medicine Adolescent Medicine
DX: E03.9 Hypothyroidism, unspecified (principal); E78.5 Hyperlipidemia, unspecified; K74.5 Biliary cirrhosis, unspecified
CPT/HCPCS: 36415; 80053; 80061; 84443; 85025

== ENCOUNTER → 2022-01-25 08:28 | Outpatient (CLI) | payer MEDICARE, BC, SELFPAY ==
--- NOTE | 2022-01-25 08:32 | XR_ITS ---
FINAL REPORT CLINICAL HISTORY: right shoulder injury COMPARISON: 12/28/2021 FINDINGS: RIGHT SHOULDER 3 views were obtained. There is an old healed fracture deformity of the proximal humerus. The fracture is partially impacted. There is bridging callus. The glenohumeral joint is preserved. The acromioclavicular joint is intact. There is no soft tissue abnormality. IMPRESSION: Healed fracture deformity of the proximal humerus. Reviewed, Interpreted and Dictated by Kade Lynch MD Transcribed by Karolyn Cheng Authenticated and . [facility]
== END ==
PROVIDERS: PCP Internal Medicine Adolescent Medicine; Visit Provider Physician Assistant Surgical
DX: S42.211A Unspecified displaced fracture of surgical neck of right humerus, initial encounter for closed fracture (principal)
CPT/HCPCS: 73030

== ENCOUNTER → 2022-02-03 08:27 | Outpatient (CLI) | payer MEDICARE, BC, SELFPAY ==
--- NOTE | 2022-02-03 08:27 | MR_ITS ---
FINAL REPORT CLINICAL HISTORY: shoulder pain. HISTORY OF SHOULDER FRACTURE 3 MONTHS AGO. Limited ROM. weakness in arm. FINDINGS: Multi planar MR imaging of the right shoulder was performed. There is a comminuted mildly displaced fracture of the humeral head and humeral neck. There is extensive marrow edema along the fracture lines. There is significant thinning of the distal supraspinatus tendon. There is fluid in the subacromial/subdeltoid bursa. The anterior and posterior glenoid giovani appear intact. The biceps tendon appears intact. There are moderate hypertrophic changes at the AC joint. IMPRESSION: Comminuted, mildly displaced subacute fracture of the humeral head and neck. Marked thinning of the distal supraspinatus tendon with fluid within the subacromial/subdeltoid bursa consistent with partial full-thickness tear. Moderate hypertrophic change of the AC joint. Reviewed, Interpreted and Dictated by Kade Lynch MD Transcribed by Scott Maharaj Authenticated and . [facility]
== END ==
PROVIDERS: PCP Internal Medicine Adolescent Medicine; Visit Provider Physician Assistant Surgical
DX: M25.511 Pain in right shoulder (principal)
CPT/HCPCS: 73221

== ENCOUNTER → 2022-03-30 08:01 | Outpatient (CLI) | payer MEDICARE, BC, SELFPAY ==
--- NOTE | 2022-03-30 08:06 | XR_ITS ---
FINAL REPORT CLINICAL HISTORY: humerus fracture f/u COMPARISON: 01/25/2022 FINDINGS: RIGHT SHOULDER Three views demonstrate a subacute, comminuted fracture of the humeral head and neck. Bony alignment is stable. There has been interval healing. Mild degenerative changes are noted of the acromioclavicular joint. No new fracture is identified. IMPRESSION: Stable, subacute fracture of the humeral head and neck with interval healing. Reviewed, Interpreted and Dictated by Brad Christopher III, MD Transcribed by Marichuy Martines Authenticated and [facility]
== END ==
PROVIDERS: PCP Internal Medicine Adolescent Medicine; Visit Provider Orthopaedic Surgery
DX: S42.251A Displaced fracture of greater tuberosity of right humerus, initial encounter for closed fracture (principal); M25.511 Pain in right shoulder
CPT/HCPCS: 73030

== ENCOUNTER → 2022-07-29 08:49 | Outpatient (CLI) | payer MEDICARE, BC, SELFPAY ==
[2022-07-29 09:43] LABS: Basophils # 0.1 K/mm3 (0-0.2); Basophils % 1.7 % (0.1-2.0); Eosinophils # 0.1 K/mm3 (0.0-0.4); Eosinophils % 2.7 % (0.1-12.0); Hematocrit 44.5 % (37.0-47.0); Lymphocytes # 1.6 K/mm3 (0.7-4.5); Lymphocytes % 34.9 % (10-50); Mean Corpuscular HGB Conc 33.8 g/dL (31.8-35.4); Mean Corpuscular Hemoglobin 31.9 pg (27.0-31.2); Mean Corpuscular Volume 94.5 fl (81-99); Mean Platelet Volume 7.3 fl (7.4-10.4); Monocytes # 0.4 K/mm3 (0.1-1.0); Monocytes % 8.7 % (1.7-9.3); Neutrophils # 2.4 K/mm3 (1.8-7.8); Neutrophils % 52.1 % (37.0-80.0); Platelet Count 266 K/mm3 (142-424); Red Blood Count 4.71 M/mm3 (4.20-5.40); Red Cell Distribution Width 13.1 % (11.5-17.5); White Blood Count 4.7 K/mm3 (4.8-10.8)
[2022-07-29 10:23] LABS: Alanine Aminotransferase 23 U/L (12-78); Albumin/Globulin Ratio 1.2 (1.1-1.8); Alkaline Phosphatase 93 U/L (38-126); Anion Gap 17.4 mEq/L (5-15); Aspartate Amino Transferase 37 U/L (14-36); Bilirubin,Total 0.8 mg/dl (0.2-1.3); Blood Urea Nitrogen 11 mg/dl (7-17); Carbon Dioxide 26 mmol/L (22.0-30.0); Chloride 99 mmol/L (98-107); Chol/HDL Ratio 3.1 (1-3.5); Cholesterol 166 mg/dl (140-200); Estimated Glomerular Filt Rate 83 ml/min (>60); GFR (African American) 100 ML/MIN (>60); Globulin 3.3 g/dL (1.3-3.2); Glucose 96 mg/dl (74-100); HDL Cholesterol 54 mg/dl (40-60); Potassium 4.4 mmoL/L (3.5-5.1); Sodium 138 mmol/L (136-145); Total Protein,Serum 7.3 g/dl (6.3-8.2); Triglycerides 83 mg/dl (30-150); VLDL Cholesterol 17 mg/dL (0-40)
[2022-07-29 10:34] LABS: Direct LDL Cholesterol 102.23 mg/dL (100-129)
[2022-07-29 10:37] LABS: Free Thyroxine Index 5.4 ug/dL (5.93-13.13); T4 (Thyroxine) 16.8 ug/dl (5.53-11.0); Triiodothryronine (T3) Uptake 32 % (23.5-40.5)
[2022-07-29 10:51] LABS: Thyroid Stimulating Hormone 0.12 uIU/mL (0.465-4.68)
== END ==
PROVIDERS: PCP Internal Medicine Adolescent Medicine; Visit Provider Internal Medicine Adolescent Medicine
DX: E03.9 Hypothyroidism, unspecified (principal); E78.5 Hyperlipidemia, unspecified; K74.5 Biliary cirrhosis, unspecified
CPT/HCPCS: 36415; 80053; 80061; 84436; 84443; 84479; 85025

== ENCOUNTER → 2023-02-07 10:26 | Outpatient (CLI) | payer MEDICARE, BC, SELFPAY ==
[2023-02-07 10:56] LABS: Basophils # 0.1 K/mm3 (0-0.2); Basophils % 2.2 % (0.1-2.0); Eosinophils # 0.2 K/mm3 (0.0-0.4); Eosinophils % 4.3 % (0.1-12.0); Hematocrit 43.9 % (37.0-47.0); Hemoglobin 14.8 g/dL (12.2-16.2); Lymphocytes # 1.5 K/mm3 (0.7-4.5); Lymphocytes % 40.9 % (10-50); Mean Corpuscular HGB Conc 33.8 g/dL (31.8-35.4); Mean Corpuscular Hemoglobin 32.6 pg (27.0-31.2); Mean Corpuscular Volume 96.5 fl (81-99); Mean Platelet Volume 7.7 fl (7.4-10.4); Monocytes # 0.2 K/mm3 (0.1-1.0); Monocytes % 6.5 % (1.7-9.3); Neutrophils # 1.7 K/mm3 (1.8-7.8); Neutrophils % 46.1 % (37.0-80.0); Platelet Count 302 K/mm3 (142-424); Red Blood Count 4.55 M/mm3 (4.20-5.40); Red Cell Distribution Width 13.2 % (11.5-17.5); White Blood Count 3.7 K/mm3 (4.8-10.8)
[2023-02-07 11:24] LABS: Alanine Aminotransferase 24 U/L (12-78); Albumin/Globulin Ratio 1.1 (1.1-1.8); Alkaline Phosphatase 111 U/L (38-126); Anion Gap 9.4 mEq/L (5-15); Aspartate Amino Transferase 39 U/L (14-36); Bilirubin,Total 0.8 mg/dl (0.2-1.3); Blood Urea Nitrogen 11 mg/dl (7-17); Calcium 8.6 mg/dl (8.4-10.2); Carbon Dioxide 31 mmol/L (22.0-30.0); Chloride 99 mmol/L (98-107); Chol/HDL Ratio 4.1 (1-3.5); Cholesterol 199 mg/dl (140-200); Estimated Glomerular Filt Rate 62 ml/min (>60); GFR (African American) 75 ML/MIN (>60); Globulin 3.5 g/dL (1.3-3.2); Glucose 91 mg/dl (74-100); HDL Cholesterol 48 mg/dl (40-60); Potassium 4.4 mmoL/L (3.5-5.1); Sodium 135 mmol/L (136-145); Total Protein,Serum 7.5 g/dl (6.3-8.2); Triglycerides 96 mg/dl (30-150); VLDL Cholesterol 19 mg/dL (0-40)
[2023-02-07 11:34] LABS: Direct LDL Cholesterol 123.64 mg/dL (100-129)
== END ==
PROVIDERS: PCP Internal Medicine Adolescent Medicine; Visit Provider Internal Medicine Adolescent Medicine
DX: E03.9 Hypothyroidism, unspecified (principal); E78.5 Hyperlipidemia, unspecified; K74.5 Biliary cirrhosis, unspecified
CPT/HCPCS: 36415; 80053; 80061; 84443; 85025

== ENCOUNTER 2023-08-04 08:38 | Outpatient (CLI) | payer MEDICARE, BC, SELFPAY ==
[2023-08-04 09:25] LABS: Basophils # 0.1 K/mm3 (0-0.2); Basophils % 2.5 % (0.1-2.0); Eosinophils # 0.2 K/mm3 (0.0-0.4); Eosinophils % 3.2 % (0.1-12.0); Hematocrit 46.3 % (37.0-47.0); Hemoglobin 15.1 g/dL (12.2-16.2); Lymphocytes # 1.8 K/mm3 (0.7-4.5); Lymphocytes % 37.4 % (10-50); Mean Corpuscular HGB Conc 32.6 g/dL (31.8-35.4); Mean Corpuscular Hemoglobin 31.7 pg (27.0-31.2); Mean Corpuscular Volume 97.3 fl (81-99); Mean Platelet Volume 7.6 fl (7.4-10.4); Monocytes # 0.3 K/mm3 (0.1-1.0); Neutrophils # 2.5 K/mm3 (1.8-7.8); Neutrophils % 50.9 % (37.0-80.0); Platelet Count 271 K/mm3 (142-424); Red Blood Count 4.76 M/mm3 (4.20-5.40); Red Cell Distribution Width 13.4 % (11.5-17.5); White Blood Count 4.9 K/mm3 (4.8-10.8)
[2023-08-04 10:32] LABS: Alanine Aminotransferase 21 U/L (12-78); Albumin Level 4.2 g/dl (3.5-5.0); Albumin/Globulin Ratio 1.1 (1.1-1.8); Alkaline Phosphatase 85 U/L (38-126); Anion Gap 12.7 mEq/L (5-15); Aspartate Amino Transferase 39 U/L (14-36); Bilirubin,Total 0.9 mg/dl (0.2-1.3); Blood Urea Nitrogen 12 mg/dl (7-17); Calcium 9.4 mg/dl (8.4-10.2); Carbon Dioxide 29 mmol/L (22.0-30.0); Chloride 101 mmol/L (98-107); Chol/HDL Ratio 3.6 (1-3.5); Cholesterol 217 mg/dl (140-200); Estimated Glomerular Filt Rate 71 ml/min (>60); GFR (African American) 86 ML/MIN (>60); Globulin 3.7 g/dL (1.3-3.2); Glucose 95 mg/dl (74-100); HDL Cholesterol 61 mg/dl (40-60); Potassium 4.7 mmoL/L (3.5-5.1); Sodium 138 mmol/L (136-145); Total Protein,Serum 7.9 g/dl (6.3-8.2); Triglycerides 120 mg/dl (30-150); VLDL Cholesterol 24 mg/dL (0-40)
[2023-08-04 10:44] LABS: Direct LDL Cholesterol 125.99 mg/dL (100-129)
[2023-08-04 11:05] LABS: Thyroid Stimulating Hormone 3.34 uIU/mL (0.465-4.68)
== END 2023-08-04 23:59 | disposition home or self-care (01) ==
LOC: LAB 08:41
PROVIDERS: PCP Internal Medicine Adolescent Medicine; Visit Provider Internal Medicine Adolescent Medicine
DX: E78.5 Hyperlipidemia, unspecified (principal); E03.9 Hypothyroidism, unspecified; K74.5 Biliary cirrhosis, unspecified
CPT/HCPCS: 36415; 80053; 80061; 84443; 85025

== ENCOUNTER 2024-02-02 09:14 | Outpatient (CLI) | payer MEDICARE, BC, SELFPAY ==
[2024-02-02 09:36] LABS: Basophils # 0.1 K/mm3 (0-0.2); Eosinophils # 0.2 K/mm3 (0.0-0.4); Eosinophils % 3.7 % (0.1-12.0); Hematocrit 45.7 % (37.0-47.0); Hemoglobin 15.8 g/dL (12.2-16.2); Lymphocytes # 1.6 K/mm3 (0.7-4.5); Lymphocytes % 34.1 % (10-50); Mean Corpuscular HGB Conc 34.7 g/dL (31.8-35.4); Mean Corpuscular Hemoglobin 32.2 pg (27.0-31.2); Mean Platelet Volume 7.5 fl (7.4-10.4); Monocytes # 0.3 K/mm3 (0.1-1.0); Neutrophils # 2.4 K/mm3 (1.8-7.8); Neutrophils % 52.2 % (37.0-80.0); Platelet Count 255 K/mm3 (142-424); Red Blood Count 4.92 M/mm3 (4.20-5.40); Red Cell Distribution Width 13.2 % (11.5-17.5); White Blood Count 4.6 K/mm3 (4.8-10.8)
[2024-02-02 09:58] LABS: Alanine Aminotransferase 24 U/L (12-78); Albumin Level 4.2 g/dl (3.5-5.0); Albumin/Globulin Ratio 1.2 (1.1-1.8); Alkaline Phosphatase 91 U/L (38-126); Anion Gap 11.4 mEq/L (5-15); Aspartate Amino Transferase 38 U/L (14-36); Blood Urea Nitrogen 10 mg/dl (7-17); Calcium 9.1 mg/dl (8.4-10.2); Carbon Dioxide 26 mmol/L (22.0-30.0); Chloride 105 mmol/L (98-107); Chol/HDL Ratio 3.6 (1-3.5); Cholesterol 192 mg/dl (140-200); Estimated Glomerular Filt Rate 71 ml/min (>60); GFR (African American) 86 ML/MIN (>60); Globulin 3.4 g/dL (1.3-3.2); Glucose 90 mg/dl (74-100); HDL Cholesterol 54 mg/dl (40-60); Potassium 4.4 mmoL/L (3.5-5.1); Sodium 138 mmol/L (136-145); Total Protein,Serum 7.6 g/dl (6.3-8.2); Triglycerides 117 mg/dl (30-150); VLDL Cholesterol 23 mg/dL (0-40)
[2024-02-02 10:10] LABS: Direct LDL Cholesterol 125.01 mg/dL (100-129)
[2024-02-02 10:16] LABS: Free Thyroxine Index 3.3 ug/dL (5.93-13.13); T4 (Thyroxine) 11.9 ug/dl (5.53-11.0); Triiodothryronine (T3) Uptake 28 % (23.5-40.5)
[2024-02-02 10:30] LABS: Thyroid Stimulating Hormone 4.77 uIU/mL (0.465-4.68)
== END 2024-02-02 23:59 | disposition home or self-care (01) ==
PROVIDERS: PCP Internal Medicine Adolescent Medicine; Visit Provider Internal Medicine Adolescent Medicine
DX: E03.9 Hypothyroidism, unspecified (principal); E78.5 Hyperlipidemia, unspecified; K74.5 Biliary cirrhosis, unspecified
CPT/HCPCS: 36415; 80053; 80061; 84436; 84443; 84479; 85025

== ENCOUNTER 2024-07-23 09:53 | Outpatient (CLI) | payer MEDICARE, BC, SELFPAY ==
[2024-07-23 10:39] LABS: Basophils # 0.1 K/mm3 (0-0.2); Basophils % 1.2 % (0.1-2.0); Eosinophils # 0.1 Kmm3 (0.0-0.4); Eosinophils % 2.9 % (0.1-12.0); Hemoglobin 14.9 g/dL (12.2-16.2); Immature Granulocytes # 0.01 10^3uL; Immature Granulocytes % 0.2 %; Lymphocytes # 1.8 K/mm3 (0.7-4.5); Lymphocytes % 36.7 % (10-50); Mean Corpuscular HGB Conc 34.7 g/dL (31.8-35.4); Mean Corpuscular Hemoglobin 32.4 pg (27.0-31.2); Mean Corpuscular Volume 93.5 fl (81-99); Mean Platelet Volume 9.4 fl (7.4-10.4); Monocytes # 0.5 K/mm3 (0.1-1.0); Monocytes % 9.7 % (1.7-9.3); Neutrophils # 2.4 K/mm3 (1.8-7.8); Neutrophils % 49.3 % (37.0-80.0); Nucleated Red Blood Cells # 0 10^3/uL; Nucleated Red Blood Cells % 0 %; Platelet Count 252 K/mm3 (142-424); Red Cell Distribution Width 12.4 % (11.5-17.5); Red Cell Distribution Width-SD 42.5 fL; White Blood Count 4.9 K/mm3 (4.8-10.8)
[2024-07-23 11:12] LABS: Alanine Aminotransferase 19 U/L (12-78); Albumin Level 4.2 g/dl (3.5-5.0); Albumin/Globulin Ratio 1.4 (1.1-1.8); Alkaline Phosphatase 79 U/L (38-126); Anion Gap 6.3 mEq/L (5-15); Aspartate Amino Transferase 35 U/L (14-36); Bilirubin,Total 0.9 mg/dl (0.2-1.3); Blood Urea Nitrogen 10 mg/dl (7-17); Calcium 9.2 mg/dl (8.4-10.2); Carbon Dioxide 30 mmol/L (22.0-30.0); Chloride 105 mmol/L (98-107); Chol/HDL Ratio 3.7 (1-3.5); Cholesterol 179 mg/dl (140-200); Estimated Glomerular Filt Rate 83 ml/min (>60); GFR (African American) 100 ML/MIN (>60); Glucose 96 mg/dl (74-100); HDL Cholesterol 48 mg/dl (40-60); Potassium 4.3 mmoL/L (3.5-5.1); Sodium 137 mmol/L (136-145); Total Protein,Serum 7.2 g/dl (6.3-8.2); Triglycerides 113 mg/dl (30-150); VLDL Cholesterol 23 mg/dL (0-40)
[2024-07-23 11:24] LABS: Direct LDL Cholesterol 105.28 mg/dL (100-129)
[2024-07-23 11:31] LABS: Free Thyroxine Index 4.6 ug/dL (5.93-13.13); Triiodothryronine (T3) Uptake 33 % (23.5-40.5)
[2024-07-23 11:44] LABS: Thyroid Stimulating Hormone 0.46 uIU/mL (0.465-4.68)
== END 2024-07-23 23:59 | disposition home or self-care (01) ==
LOC: LAB 09:58
PROVIDERS: PCP Internal Medicine Adolescent Medicine; Visit Provider Internal Medicine Adolescent Medicine
DX: K74.5 Biliary cirrhosis, unspecified (principal); E03.9 Hypothyroidism, unspecified; E78.5 Hyperlipidemia, unspecified
CPT/HCPCS: 36415; 80053; 80061; 84436; 84443; 84479; 85025

== ENCOUNTER 2024-10-27 08:22 | Day surgery (SDC) | payer MEDICARE, BC, SELFPAY ==
[2024-10-27 09:32] VITALS: BMI 32.0
[2024-10-27 09:33] VITALS: BP 167/83; PULSE 83; RESP 17; TEMP 36.3; O2SAT 97
[2024-10-27] MEDS: LACTATED RINGERS 1000ML 1,000 ML 50 ML IV (09:39)
--- NOTE | 2024-10-27 10:00 | EXP.HP ---
History of Present Illness *Admission Date: 10/27/24 *Reason for visit:: Personal history of adenomatous colon polyps *History of present illness: Mrs. Alexander is a 69-year-old female who is here for follow-up screening/surveillance colonoscopy secondary to a personal history of adenomatous colon polyps. She did have a colonoscopy in February 2016 and had 3 polyps (tubular adenomas x 3) removed.. The examination is deemed medically necessary for screening/surveillance colonoscopy. The patient has been seen, interviewed and examined prior to the procedure by both myself and the anesthesia provider. [facility] Disclaimer: The information contained in this section may have been updated after the patient was seen, as this information can be updated by other users. Medical History (Updated 10/27/24 @ 10:01 by Markel Fish II, MD) Kidney stone Arthritis Hypothyroid Surgical History (Updated 10/27/24 @ 09:30 by Gretchen Ward RN) Hx of colonoscopy H/O lithotripsy Family History (Updated 10/27/24 @ 09:30 by Gretchen Ward RN) Other No significant family history Social History (Updated 10/27/24 @ 09:30 by Gretchen Ward RN) Smoking Status: Never smoker alcohol intake: never substance use type: denies use current occupational status: retired Travel in the last 8 weeks?: None household members: none housing: house Have you lived/traveled outside US in past 30 days?: No Contact w/someone who lives/traveled outside US past 30 days?: No Exposure to someone with infectious disease in past 14 days?: No Do you have a fever (greater than 100.4 F or 38 C)?: No Have you tested positive for COVID-19?: No Exposed to someone with COVID-19 in past 14 days?: No Do you have a sore throat?: No Do you have a cough?: No Do you have any weakness?: No Are you experiencing any nausea/vomitting?: No Do you have any diarrhea?: No Are you experiencing any unusual bleeding?: No Do you have any muscle aches/pain?: No Do you have any abdominal pain?: No Are you experiencing loss of taste or smell?: No Other Medical History Have you received the Flu Vaccine for this season: No Have you received the Pneumonia Vaccine: Yes Review of Systems Review of Systems Review of systems (narrative): Negative *Cardiovascular Comments: Negative *Gastrointestinal Comments: Negative *Genitourinary Comments: Negative *Musculoskeletal Comments: Negative *Neurologic Comments: Negative Meds Home Medications and Allergies Home Medications ?Medication ?Instructions ?Recorded ?Confirmed ?Type levothyroxine 100 mcg capsule 150 mcg PO DAILY 02/28/18 10/27/24 History New Prescriptions to Start Prescriptions: Allergies Allergy/AdvReac Type Severity Reaction Status Date / Time No Known Allergies Allergy Verified 10/27/24 09:30 Exam Data for Last 24 hours Vital signs and Labs for Last 24 Hours: Temp Pulse Resp BP Pulse Ox O2 Del Method 97.3 F L 83 17 167/83 H 97 Room Air 10/27/24 09:33 10/27/24 09:33 10/27/24 09:33 10/27/24 09:33 10/27/24 09:33 10/27/24 09:33 I & O for Last 24 hours: Intake & Output 10/24/24 10/25/24 10/26/24 10/27/24 23:59 23:59 23:59 23:59 Weight 175 lb *Routine HEENT Exam Head: Present normocephalic Eye: Present EOMI and PERRL ENT: Present mucous membranes moist *Routine Neck Exam Neck: Present supple *Routine Respiratory Exam Respiratory: Present CTA bilaterally *Routine Cardiovascular Exam Cardiovascular: Present RRR *Routine Abdominal Exam Abdominal: Present soft and normoactive bowel sounds; Absent tenderness *Routine Rectal Exam Rectal:: deferred *Routine Genitalia Exam Genitalia:: deferred *Routine Extremities Exam Extremities: Absent cyanosis, clubbing or edema *Routine Skin Exam Skin: Present warm; Absent rash *Routine Neurological Exam Neurological: Present alert and oriented X3 Assessment and Plan *Assessment and plan (1) Personal history of adenomatous and serrated colon polyps: Status: Acute Category: Medical Code(s): Z86.0101 - Personal history of adenomatous and serrated colon polyps (2) Screening for colon cancer: Status: Acute Category: Medical Code(s): Z12.11 - Encounter for screening for malignant neoplasm of colon Plan A/P: 1. Personal history of adenomatous colon polyps is the preprocedural diagnosis. Her last colonoscopy was in February 2016 and she had 3 polyps (tubular adenomas x 3) removed. The patient will be anesthetized/sedated using MAC sedation. The patient has been seen and examined. Cardiac and lung assessment prior to the examination is stable. Proceed with planned screening/surveillance colonoscopy.
--- NOTE | 2024-10-27 10:02 | P.PNANES_ITS ---
[facility] Disclaimer: The information contained in this section may have been updated after the patient was seen, as this information can be updated by other users. Medical History (Updated 10/27/24 @ 10:01 by Markel Fish II, MD) Kidney stone Arthritis Hypothyroid Surgical History (Updated 10/27/24 @ 09:30 by Gretchen Ward, BARTOLO) Hx of colonoscopy H/O lithotripsy Family History (Updated 10/27/24 @ 09:30 by Gretchen Ward, BARTOLO) Other No significant family history Social History (Updated 10/27/24 @ 09:30 by Gretchen Ward RN) Smoking Status: Never smoker alcohol intake: never substance use type: denies use current occupational status: retired Travel in the last 8 weeks?: None household members: none housing: house Have you lived/traveled outside US in past 30 days?: No Contact w/someone who lives/traveled outside US past 30 days?: No Exposure to someone with infectious disease in past 14 days?: No Do you have a fever (greater than 100.4 F or 38 C)?: No Have you tested positive for COVID-19?: No Exposed to someone with COVID-19 in past 14 days?: No Do you have a sore throat?: No Do you have a cough?: No Do you have any weakness?: No Are you experiencing any nausea/vomitting?: No Do you have any diarrhea?: No Are you experiencing any unusual bleeding?: No Do you have any muscle aches/pain?: No Do you have any abdominal pain?: No Are you experiencing loss of taste or smell?: No [facility] Anesthesia Checklist Patient Identification Patient Identification: Arm Band and Verbal (Name & ) Structural Data Admitted From: Home Planned Operative Procedure/s: colonoscopy Verified Documents: Surgical Consent NPO Status Verified Time NPO: 00:00 Additional verifications Anesthesia Reactions: No Airway Assessment Mallampati Score:: Class II C-Spine Mobility Assessed: Yes TMJ Mobility Assessed: Yes Dentition: Good Dentition Neurological Assessment Level of Consciousness: Awake, Alert and Appropriate Hx Seizures: No Numbness or tingling in extremities: No Anesthesia Plan Anesthesia Risk discussed: Yes Anesthesia Plan: Verified ASA Class: II Anesthesia Type: MAC
--- NOTE | 2024-10-27 10:09 | [facility].PROCNOTE ---
[facility] Procedure Note Date: 10/27/24 Time: 10:26 Procedure Note:: Colonoscopy Procedure Report: Colonoscopy with cold snare polypectomy Endoscopist: Markel Fish II, MD Referring physician: Mandeep Smalls M.D. Date of Procedure: October 27, 2024 Equipment: Olympus [id number] adult colonoscope Sedation: MAC sedation Indication: Mrs. Alexander is a 69-year-old female who is here for follow-up screening/surveillance colonoscopy. She did have a colonoscopy in February 2016 and had 3 polyps (tubular adenomas x 3) which were removed. She reports no abdominal pain, weight loss, change in her bowel habits or rectal bleeding. She reports no family history of colon cancer. Procedure: Prior to the procedure, a history and physical exam was performed, and patient's medications and allergies were reviewed. The risks, benefits and alternatives of the sedation and procedure were discussed with the patient. All questions were answered and informed consent was obtained. The patient was brought to the procedure room. Patient identification and proposed procedure were verified by the physician and the nurse. The patient was placed in a left lateral decubitus position and the scope was passed under direct vision. Throughout the procedure, the patient's blood pressure, pulse, and oxygen saturations were monitored continuously. The colonoscopy was accomplished without difficulty. The patient tolerated the procedure well. Findings: On digital rectal examination there was normal rectal tone. There were no external hemorrhoids. The colonoscope was introduced through the anal canal to the rectum and advanced to the cecum. The ileocecal valve and appendiceal orifice were identified. The scope was advanced a short distance into the ileum which appeared grossly normal. The scope was then withdrawn into the colon. There were 2 diminutive polyps (descending x 2 (2 and 4 mm)) which were both removed via cold snare polypectomy. The remaining cecum, ascending, transverse, descending, sigmoid and rectum were grossly normal. There were no other mucosal abnormalities identified. Upon retroflexion within the rectum there were grade 1-2 internal hemorrhoids. The preparation was excellent throughout with [place] Preparation Score of 9. The cecal time was 12 minutes. Impression: 1. Diminutive colonic polyps x 2 (2 and 4 mm) Plan: I will follow-up the polyp histology and recommend repeat surveillance colonoscopy again in 7 years if the polyps are adenomatous.
[2024-10-27 10:30] VITALS: BP 124/61; PULSE 71; TEMP 36.4; O2SAT 93
[2024-10-27 10:40] VITALS: BP 131/66; PULSE 71; TEMP 36.4; O2SAT 93
[2024-10-27 10:50] VITALS: BP 105/68; PULSE 62; RESP 18; O2SAT 100
[2024-10-27 11:00] VITALS: BP 125/68; PULSE 61; O2SAT 100
== END 2024-10-27 11:00 | disposition home or self-care (01) ==
PROVIDERS: PCP Internal Medicine Adolescent Medicine; Visit Provider Internal Medicine Gastroenterology
PROC: 0DJD8ZZ Inspection of Lower Intestinal Tract, Via Natural or Artificial Opening Endoscopic (ICD-10-PCS; CPT 45378; principal; 2024-10-27 10:00)
DX: Z12.11 Encounter for screening for malignant neoplasm of colon (principal); K63.5 Polyp of colon; M19.90 Unspecified osteoarthritis, unspecified site; E03.9 Hypothyroidism, unspecified; Z86.0101 Personal history of adenomatous and serrated colon polyps; Z79.890 Hormone replacement therapy
CPT/HCPCS: 45385; J2003; J2704; J7120

== ENCOUNTER 2025-02-02 13:14 | Outpatient (CLI) | payer MEDICARE, BC, SELFPAY ==
[2025-02-02 13:53] LABS: Hematocrit 41.6 % (37.0-47.0); Hemoglobin 14.4 g/dL (12.2-16.2); Immature Granulocytes % 0.2 %; Mean Corpuscular HGB Conc 34.6 g/dL (31.8-35.4); Mean Corpuscular Hemoglobin 32.1 pg (27.0-31.2); Mean Corpuscular Volume 92.9 fl (81-99); Nucleated Red Blood Cells % 0 %; Platelet Count 247 K/mm3 (142-424); Red Blood Count 4.48 M/mm3 (4.20-5.40); Red Cell Distribution Width-SD 42.2 fL; White Blood Count 4.4 K/mm3 (4.8-10.8)
[2025-02-02 14:31] LABS: Albumin Level 4.2 g/dl (3.5-5.0); Chloride 101 mmol/L (98-107); Potassium 4.2 mmoL/L (3.5-5.1); Sodium 138 mmol/L (136-145)
[2025-02-02 14:33] LABS: Blood Urea Nitrogen 10 mg/dl (7-17); Creatinine,Serum 0.80 mg/dl (0.52-1.04); Estimated Glomerular Filt Rate 71 ml/min (>60); GFR (African American) 86 ML/MIN (>60)
[2025-02-02 14:34] LABS: Alanine Aminotransferase 18 U/L (12-78); Albumin/Globulin Ratio 1.2 (1.1-1.8); Alkaline Phosphatase 86 U/L (38-126); Anion Gap 11.2 mEq/L (5-15); Aspartate Amino Transferase 37 U/L (14-36); Bilirubin,Total 0.9 mg/dl (0.2-1.3); Calcium 9.1 mg/dl (8.4-10.2); Carbon Dioxide 30 mmol/L (22.0-30.0); Cholesterol 182 mg/dl (140-200); Globulin 3.6 g/dL (1.3-3.2); Glucose 90 mg/dl (74-100); HDL Cholesterol 48 mg/dl (40-60); Total Protein,Serum 7.8 g/dl (6.3-8.2); Triglycerides 106 mg/dl (30-150)
[2025-02-02 14:51] LABS: Free Thyroxine Index 5.0 ug/dL (5.93-13.13); T4 (Thyroxine) 16.0 ug/dl (5.53-11.0); Triiodothryronine (T3) Uptake 31 % (23.5-40.5)
[2025-02-02 15:05] LABS: Thyroid Stimulating Hormone 0.10 uIU/mL (0.465-4.68)
[2025-02-02 15:59] LABS: Hemoglobin A1C 5.3 % (4.0-6.0)
== END 2025-02-02 23:59 | disposition home or self-care (01) ==
LOC: LAB 13:16
PROVIDERS: PCP Internal Medicine Adolescent Medicine; Visit Provider Internal Medicine Adolescent Medicine
DX: E03.9 Hypothyroidism, unspecified (principal); R79.9 Abnormal finding of blood chemistry, unspecified; E78.5 Hyperlipidemia, unspecified; K74.5 Biliary cirrhosis, unspecified
CPT/HCPCS: 36415; 80053; 80061; 83036; 84436; 84443; 84479; 85025